=== PATIENT | male | born 1990 | race Caucasian/White ===

== ENCOUNTER 2024-11-01 02:20 | Emergency (ER) | payer OTHER ==
[~2024-11-01] VITALS: Ht 180.3 cm; Wt 113.6 kg
[2024-11-01 02:31] VITALS: BP 137/94; PULSE 86; RESP 16; TEMP 98.1; O2SAT 96
== END 2024-11-01 05:31 ==
LOC: EMS 02:23
DX: S90.32XA Contusion of left foot, initial encounter (principal); L08.9 Local infection of the skin and subcutaneous tissue, unspecified; W06.XXXA Fall from bed, initial encounter; Y93.39 Activity, other involving climbing, rappelling and jumping off; Y92.89 Other specified places as the place of occurrence of the external cause; Y99.8 Other external cause status
CPT/HCPCS: 99284